=== PATIENT | female | born 1945 | race Two or more races ===

== ENCOUNTER 2024-08-28 18:53 | Inpatient (IN) | payer OTHER ==
[~2024-08-28] VITALS: Ht 162.6 cm; Wt 56.7 kg
[2024-08-28] MEDS ORDERED: KAPSPARGO SPRIN25 MG PO (19:20)
--- NOTE | 2024-08-28 19:20 | NUR ---
SE RECIBE PTE ALERTA Y ORIENTADA X3 EN AMBULANCIA EN COMPANIA DE PARAMEDICOS. LA MISMA REFIERE DEBILIDAD, MAREOS Y WBC BAJITOS DE UNOS LABORATORIOS REALIZADOS HOY. SE MIDEN S/V Y SE UBICA.
[2024-08-28] MEDS ORDERED: 0.9 % SODIUM CHLORIDE 1,000 ML IV STA (20:52)
[2024-08-28] MEDS ORDERED: BARIUM SULFATE 450 ML ORAL.SUSP PO ONE (21:43)
--- NOTE | 2024-08-28 22:02 | NUR ---
PTE EVALUADA POR EL DR. BARBOSA. PHILIPPE Fitzpatrick JOSUE CANALIZA, COLECTA MUESTRA DE LAB Y SE ADMINISTRA MEDICAMENTO TOD ORDEN MEDICA BAJO MEDIDAS ASEPTICAS. SE COMIENZA CONTRASTE PO PARA ESTUDIO DE CT. SE NOTIFICA CHEST PORTABLE.
[2024-08-28 22:37] LABS: HEMATOCRIT 23.9 % (36.0-45.00); MEAN CELL VOLUME 104.5 fL (80.00-100.00); MEAN CORPUSCULAR HGB CONC 34.9 g/dl (32.0-36.0); RED BLOOD COUNT 2.29 M/uL (4.00-6.00); RED CELL DISTRIBUTION WIDTH 15.7 % (11.5-14.5)
[2024-08-28 22:39] LABS: MEAN CORPUSCULAR HEMOGLOBIN 36.2 pg (27.00-32.0)
[2024-08-28 22:40] LABS: PLATELET COUNT 115 K/uL (150-450)
[2024-08-28 22:41] LABS: HEMOGLOBIN 8.3 g/dL (12.0-15.00)
[2024-08-28 22:44] LABS: INR 0.99; PARTIAL THROMBOPLASTIN TIME 24.2 SECONDS (22.0-34.0); PROTHROMBIN TIME 10.8 SECONDS (9.0-11.5)
--- NOTE | 2024-08-28 22:47 | NUR ---
PTE ALERTA Y ORIENTADA X3. AL MOMENTO EN QUE SE VA A EDUCAR A PTE LA MISMA SE ENCUENTRA CONSUMIENDO ALIMENTOS DE NISHANT GEORGES, LO CUAL SE INFORMA A QUIEN INDICA NO REALIZAR CT CON CONTRASTE PO.
[2024-08-28 22:49] LABS: ALBUMIN 3.5 gm/dL (3.4-5.0); BILIRUBIN TOTAL 0.43 mg/dL (0.3-1.2); CALCIUM 8.8 mg/dL (8.5-10.1); CREATININE SERUM 0.7 mg/dL (0.55-1.02); GFR 80.93; GLOBULINA 3.3 G/DL (2.4-3.5); POTASSIUM 4.02 mEq/L (3.5-5.1); TOTAL PROTEIN 6.8 gm/dL (6.4-8.2)
[2024-08-29 10:23] LABS: URINE APPEARANCE Clear; URINE BILIRRUBIN Negative (NEGATIVE); URINE BLOOD Negative; URINE COLOR Yellow; URINE GLUCOSE Negative (NEGATIVE); URINE KETONE Negative (NEGATIVE); URINE LEUKOCYTE Negative; URINE NITRATE Negative; URINE PROTEIN Negative (NEGATIVE); URINE UROBILINOGEN 0.2 E.U./dl
[2024-08-29 10:27] LABS: URINE BACTERIA 62.4 uL (0.0-1933); URINE EPITHELIAL CELLS 22.1 uL (0.0-38.8); URINE RBC 13.9 uL (0.0-20.8); URINE WBC 4.5 uL (0.0-23.2)
[2024-08-29 10:45] LABS: URINE CAST 0.14 uL (0.0-1.40)
[2024-08-29] MEDS ORDERED: 0.9 % SODIUM CHLORIDE 1,000 ML IV SCH (17:00)
[2024-08-29] MEDS ORDERED: METRONIDAZOLE/SODIUM CHLORIDE 100 ML IV SCH (17:10)
[2024-08-29] MEDS ORDERED: ONDANSETRON HCL 4 MG in 0.9 % SODIUM CHLORIDE 50 ML IV PRN (17:15)
[2024-08-29] MEDS ORDERED: ACETAMINOPHEN 500 MG GEL..CAP PO PRN (17:15)
[2024-08-29] MEDS ORDERED: MORPHINE SULFATE 2 MG/ML CARTRIDGE IV PRN (17:15)
[2024-08-29] MEDS ORDERED: HYOSCYAMINE SULFATE 0.125 MG TAB.SUBL PO ONE (17:15)
[2024-08-29] MEDS ORDERED: HYOSCYAMINE SULFATE 0.125 MG TAB.SUBL ONE ×2 (17:29→18:13)
[2024-08-29 18:10] LABS: ERYTHROCYTE SEDIMENTATION RATE 32 mm/hr; PLT IN CITRATE 122 K/uL (150-450)
[2024-08-29 19:18] LABS: C-REACTIVE PROTEIN 0.47 MG/DL (0.00-0.29)
[2024-08-29] MEDS ORDERED: CIPROFLOXACIN IN 5 % DEXTROSE 200 ML IV SCH (21:00)
[2024-08-30 00:42] VITALS: BP 100/56
[2024-08-30] MEDS ORDERED: METOPROLOL SUCCINATE 25 MG TAB.SR.24H PO SCH (09:00)
[2024-08-30] MEDS ORDERED: PANTOPRAZOLE SODIUM 40 MG/VIAL VIAL IV SCH (09:00)
[2024-08-30] MEDS ORDERED: IRON FUM,PS/FOLIC/BCOMP,C NO.9 1 CAP CAPSULE PO SCH (09:00)
[2024-08-30 09:30] VITALS: BP 138/76; O2SAT 97
[2024-08-30 18:26] VITALS: BP 130/61
[2024-08-30 20:14] LABS: HEMATOCRIT 28.6 % (36.0-45.00); MEAN CELL VOLUME 102.3 fL (80.00-100.00); MEAN CORPUSCULAR HEMOGLOBIN 35.7 pg (27.00-32.0); MEAN CORPUSCULAR HGB CONC 34.9 g/dl (32.0-36.0)
[2024-08-30 20:37] LABS: PLATELET COUNT 104 K/uL (150-450)
[2024-08-31 00:35] VITALS: BP 115/65
[2024-08-31 07:30] LABS: TSH 0.926 uIU/mL (0.358-3.74)
[2024-08-31 07:32] LABS: C-REACTIVE PROTEIN 0.83 MG/DL (0.00-0.29)
[2024-08-31 09:05] VITALS: BP 107/60; O2SAT 98
[2024-08-31 11:30] LABS: FOLIC ACID > 20.00 ng/ml (4.78-20)
[2024-08-31 17:31] VITALS: BP 116/62
[2024-09-01 02:22] VITALS: BP 133/64; O2SAT 96
[2024-09-01 06:50] LABS: CALCIUM 8.3 mg/dL (8.5-10.1); CREATININE SERUM 0.91 mg/dL (0.55-1.02); GFR 59.79; PHOSPHOROUS 3.2 mg/dL (2.5-4.9); POTASSIUM 4.29 mEq/L (3.5-5.1)
[2024-09-01 08:00] VITALS: BP 133/61
[2024-09-01] MEDS ORDERED: KETOROLAC TROMETHAMINE 30 MG VIAL IV STA (17:22)
[2024-09-01] MEDS ORDERED: HEPARIN SODIUM,PORCINE 5,000 UNITS/ML VIAL ONE (17:42)
[2024-09-01 17:50] VITALS: BP 109/54
[2024-09-02 01:00] VITALS: BP 104/50
[2024-09-02 08:38] VITALS: BP 144/60
[2024-09-02 09:58] LABS: PLATELET ESTIMATE NORMAL (NORMAL)
[2024-09-02 17:30] VITALS: BP 134/69; O2SAT 97
[2024-09-03] MEDS ORDERED: PANTOPRAZOLE SODIUM 40 MG TABLET.DR PO SCH (09:00)
== END 2024-09-02 21:37 | disposition home or self-care (01) | DRG 812 ==
LOC: ER 18:53 → MEDJ 08-29 18:06
PROVIDERS: General Practice; Internal Medicine Hematology & Oncology; ADMIT Internal Medicine; ATTEND Internal Medicine
PROC: BW21ZZZ Computerized Tomography (CT Scan) of Abdomen and Pelvis (ICD-10-PCS; 2024-08-28)
PROC: 30233N1 Transfusion of Nonautologous Red Blood Cells into Peripheral Vein, Percutaneous Approach (ICD-10-PCS; 2024-08-30)
PROC: 079T3ZX Drainage of Bone Marrow, Percutaneous Approach, Diagnostic (ICD-10-PCS; principal; 2024-09-01)
PROC: 07DR3ZX Extraction of Iliac Bone Marrow, Percutaneous Approach, Diagnostic (ICD-10-PCS; 2024-09-01)
DX: D64.9 Anemia, unspecified (principal); K57.92 Diverticulitis of intestine, part unspecified, without perforation or abscess without bleeding; C95.90 Leukemia, unspecified not having achieved remission; D61.818 Other pancytopenia; D46.9 Myelodysplastic syndrome, unspecified